=== PATIENT | female | born 1960 | race Caucasian/White ===

== ENCOUNTER → 2018-05-18 08:17 | Outpatient (CLI) | payer SELFPAY ==
--- NOTE | 2018-05-18 | DI.MG.S_ITS ---
BILATERAL DIGITAL SCREENING MAMMOGRAM 3D/2D WITH CAD: 05/18/2018 CLINICAL: Routine screening. Family history of breast cancer. Comparison is made to exams dated: 04/12/2017 mammogram, 02/28/2016 mammogram, and 02/27/2015 mammogram - [facility]. The tissue of both breasts is extremely dense, which lowers the sensitivity of mammography. Current study was also evaluated with a Computer Aided Detection (CAD) system. No significant masses, calcifications, or other findings are seen in either breast. There has been no significant interval change. IMPRESSION: NEGATIVE There is no mammographic evidence of malignancy. A 1 year screening mammogram is recommended. This exam was interpreted at Station ID: [id number]. NOTE: For mammograms, a report in lay terms will be sent to the patient. Approximately 15% of breast malignancies will not be visualized mammographically. In the management of a palpable breast mass, a negative mammogram must not discourage biopsy of a clinically suspicious lesion. Electronically Signed By: Noah bradford/rahel:05/18/2018 16:01:40 letter sent: Normal Exam ACR BI-RADS Category 1: Negative [id number]
== END ==
PROVIDERS: PCP Nurse Practitioner Family; Visit Provider Nurse Practitioner Family
DX: Z12.31 Encounter for screening mammogram for malignant neoplasm of breast (principal); Z80.3 Family history of malignant neoplasm of breast
CPT/HCPCS: 77063; 77067

== ENCOUNTER → 2019-05-22 13:58 | Outpatient (CLI) | payer SELFPAY ==
--- NOTE | 2019-05-22 | DI.MG.S_ITS ---
BILATERAL DIGITAL SCREENING MAMMOGRAM 3D/2D WITH CAD: 05/22/2019 CLINICAL: Routine screening. Family history of breast cancer. Comparison is made to exams dated: 05/18/2018 mammogram - [facility], 04/12/2017 mammogram, and 02/28/2016 mammogram - [facility]. The tissue of both breasts is extremely dense, which lowers the sensitivity of mammography. Current study was also evaluated with a Computer Aided Detection (CAD) system. No significant masses, calcifications, or other findings are seen in either breast. There has been no significant interval change. IMPRESSION: NEGATIVE There is no mammographic evidence of malignancy. A 1 year screening mammogram is recommended. This exam was interpreted at Station ID: [id number]. NOTE: For mammograms, a report in lay terms will be sent to the patient. Approximately 15% of breast malignancies will not be visualized mammographically. In the management of a palpable breast mass, a negative mammogram must not discourage biopsy of a clinically suspicious lesion. Electronically Signed By: Raymundo santana/rahel:05/22/2019 19:09:27 letter sent: Normal Exam ACR BI-RADS Category 1: Negative [id number]
== END ==
PROVIDERS: PCP Nurse Practitioner Family; Referring Provider Nurse Practitioner Family; Visit Provider Nurse Practitioner Family
DX: Z12.31 Encounter for screening mammogram for malignant neoplasm of breast (principal); Z80.3 Family history of malignant neoplasm of breast
CPT/HCPCS: 77063; 77067

== ENCOUNTER → 2019-10-31 14:47 | Outpatient (CLI) | payer SELFPAY ==
--- NOTE | 2019-10-31 14:49 | DI.RAD.S_ITS ---
PROCEDURE: XR KNEE LT 3V INDICATIONS: 3 week hx l knee pain TECHNIQUE: 3 views of the knee were acquired. COMPARISON: None. FINDINGS: Bones: No fractures or dislocations. No suspicious bony lesions. Mild early knee joint degeneration. Soft tissues: No joint effusion. No suspicious soft tissue calcifications. IMPRESSION: Mild periarticular osteophyte formation indicating early joint degeneration. Dictated by: Rojelio Jackson [facility] Interpreted: Abdoul Arce MD on 10/31/2019 at 16:01 Approved by: Abdoul Arce M.D. on 10/31/2019 at 16:38
== END ==
PROVIDERS: PCP Family Medicine; Referring Provider Family Medicine; Visit Provider Registered Nurse Diabetes Educator
DX: M25.562 Pain in left knee (principal); M17.12 Unilateral primary osteoarthritis, left knee
CPT/HCPCS: 73562

== ENCOUNTER 2020-03-17 15:08 | Emergency (ER) | payer SELFPAY ==
[2020-03-17] VITALS (9 sets, daily range): BP systolic 125–206; BP diastolic 75–141; PULSE 74–159; RESP 11–41; TEMP 37; O2SAT 90–99; BMI 24.3
--- NOTE | 2020-03-17 15:28 | DI.RAD.S_ITS ---
PROCEDURE: XR CHEST 1V INDICATIONS: chest pain TECHNIQUE: One view of the chest was acquired. COMPARISON: None. FINDINGS: Surgical changes and devices: Sternotomy wires and a cardiac valve prosthesis can be seen. Lungs and pleura: Lungs are clear. No pleural effusions or pneumothorax. Mediastinum: Mediastinal contours appear normal. Heart size is normal. Bones and chest wall: No suspicious bony lesions. Age-appropriate bony degenerative changes are seen. Overlying soft tissues appear unremarkable. IMPRESSION: Clear lungs. Postoperative and degenerative changes are seen. Dictated by: David Tipton M.D. on 03/17/2020 at 16:04 Approved by: David Tipton M.D. on 03/17/2020 at 16:05
[2020-03-17] MEDS: SODIUM CHLORIDE 0.9% 1,000 ML 150 ML IV (15:39)
[2020-03-17] MEDS: propofoL 200 MG/20 ML VIAL 100 MG IV (15:39)
[2020-03-17] MEDS: ENOXAPARIN 40 MG/0.4 ML SYRINGE SUBCUT (15:39)
[2020-03-17] MEDS: propofoL 200 MG/20 ML VIAL 30 MG IV (15:45)
[2020-03-17 15:53] LABS: Add Manual Diff / Slide Review NO; Basophils Absolute Auto 100 /uL (0-100); Basophils Percent Auto 0.5 % (0-2); Eosinophils Absolute Auto 100 /uL (0-450); Eosinophils Percent Auto 0.8 % (2-4); Hematocrit 48.8 % (36-46); Hemoglobin 16.1 g/dL (12.0-16.0); Lymphocytes Absolute Auto 1600 /uL (1100-4500); Lymphocytes Percent Auto 15.2 % (25-40); Mean Corpuscular Hemoglobin 31.7 PG (26-34); Mean Corpuscular Volume 95.9 fL (80-100); Monocytes Absolute Auto 800 /uL (0-900); Monocytes Percent Auto 7.6 % (3-14); Neutrophils Absolute Auto 7900 /uL (1500-7000); Neutrophils Percent Auto 75.9 % (50-75); Platelet Count 232 X10^3/uL (150-400); Red Blood Cell Count 5.09 X10^6/uL (4.0-5.2); Red Cell Distribution Width 13.3 % (11.6-14.8); White Blood Cell Count 10.4 X10^3/uL (4.5-11.0)
[2020-03-17 16:08] LABS: INR 0.9 (0.9-1.3); Prothrombin Time 10.3 SECONDS (10.1-12.7)
[2020-03-17 16:11] LABS: PTT Partial Thromboplastin Tim 31 SECONDS (26.4-36.2)
[2020-03-17 16:12] LABS: Alanine Aminotransferase 25 IU/L (<35); Albumin 4.7 g/dL (3.5-5.0); Albumin Globulin Ratio 1.5 (1.0-2.8); Alkaline Phosphatase 80 U/L (38-126); Aspartate Aminotransferase 31 IU/L (14-36); BUN Creatinine Ratio 18.2 (6-22); Bilirubin Total 0.5 mg/dL (0.2-1.3); Blood Urea Nitrogen 12 mg/dL (7-17); Calcium 9.7 mg/dL (8.4-10.2); Carbon Dioxide 23 mmol/L (22-32); Chloride 105 mmol/L (98-107); Creatine Kinase 58 U/L (30-135); Estimated Glomerular Filt Rate > 60.0 mL/min (>60); Globulin 3.2 g/dL (1.7-4.1); Glucose 127 mg/dL (70-100); HEMOLYSIS 19 (0-50); Lipase 102 U/L (23-300); Magnesium 2.2 mg/dL (1.6-2.3); Potassium 4.1 mmol/L (3.4-5.1); Sodium 135 mmol/L (137-145); Total Protein 7.9 g/dL (6.3-8.2)
--- NOTE | 2020-03-17 16:14 | ED_ITS ---
HPI - Arrhythmia/Palpitations General Chief Complaint: Arrhythmia/Palpitations Stated Complaint: heart arrhythmia Time Seen by Provider: 03/17/20 15:10 Source: patient Mode of arrival: Family Vehicle Limitations: no limitations History of Present Illness HPI narrative: 59F nonsmoker with a history of palpitations/possible AFib, prior Mitral Valve repair presents with rapid heart rate and palpitations since about 0500 today. She feels anxious, but denies chest pain. She has mild shortness of breath. She denies any medication change or dietary change. She states she's been seeing cardiology at [facility] and they have her scheduled for a Zio patch to evaluate what sounds like atrial fibrillation in a few weeks. She does not take anticoagulation. She denies dizziness, weakness, or fatigue. 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 1 cap PO .qhs 03/23/18 10/31/19 HRT TOPICAL 10/31/19 aspirin 81 mg tablet,delayed 81 mg PO DAILY 10/31/19 10/31/19 release dragon balm THC TOPICAL 10/31/19 Previous Rx's Medication Instructions Recorded progesterone micronized 100 mg 100 mg PO BEDTIME #90 cap 11/24/19 capsule felodipine 2.5 mg tablet,extended 2.5 mg PO DAILY #90 tab 12/01/19 release 24 hr apixaban [Eliquis] 5 mg PO BID 21 Days #42 tab 03/17/20 Allergies Allergy/AdvReac Type Severity Reaction Status Date / Time No Known Drug Allergies Allergy Verified 03/17/20 15:33 Review of Systems Constitutional Constitutional: Denies chills, Denies fatigue, Denies fever(s), Denies frequent falls, Denies lethargy and Denies weakness Eyes Eyes: Denies change in vision, Denies eye discharge, Denies irritation and Denies loss of vision ENT Ears, Nose, Mouth, and Throat: Denies change in voice, Denies dizziness, Denies neck pain, Denies sore throat and Denies throat swelling Cardiovascular Cardiovascular: Denies chest pain, Reports rapid heart rate, Reports irregular heart rhythm, Reports lightheadedness, Reports palpitations, Reports dyspnea, Denies dyspnea on exertion and Denies orthopnea Respiratory Respiratory: Denies cough, Reports dyspnea, Denies dyspnea on exertion and Denies wheezing Gastrointestinal Gastrointestinal: Denies abdominal pain, Denies change in bowel habits, Denies diarrhea, Denies nausea and Denies vomiting Musculoskeletal Musculoskeletal: Denies neck pain and Denies numbness Integumentary/Breasts Skin/Breast: Denies pruritus, Denies erythema, Denies rash and Denies wounds Neurologic Neurologic: Denies behavioral changes, Denies confusion, Denies dizziness, Denies frequent falls, Denies loss of vision, Denies numbness and Denies weakness Psychiatric Psychiatric: Denies anxiety, Denies behavioral changes, Denies confusion, Denies depression, Denies homicidal ideation and Denies suicidal ideation Endocrine Endocrine: Denies fatigue, Denies flushing and Reports palpitations Hematologic/Lymphatic Hematologic/Lymphatic: Denies easy bruising Allergic/Immunologic Allergic/Immunologic: Denies urticaria, Denies throat swelling and Denies wheezing Patient History Medical History (Updated 03/17/20 @ 17:09 by Gregory Patrick DO) Foot pain Hearing loss (~2016) Herpes (~1984) Infertility (~2002) Mitral valve prolapse (~1969) Osteoarthritis (~2014) Pulmonary hypertension (~1999) Rosacea (~2011) Tinnitus (~2016) Vision disorder Surgical History Anesthesia History of mitral valve repair (~06/27/97) Berry teeth extracted Family History Father Heart disease Grandfather Heart disease Social History marital status: lives independently: Yes education level: college 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 Well- nourished, well-developed patient, in mild distress. Anxious HEAD: Atraumatic. Normocephalic. EYES: Pupils equal round and reactive. Extraocular motions intact. No scleral icterus. No injection or drainage. ENT: Nose without bleeding, purulent drainage. Throat without erythema, tonsillar hypertrophy or exudate. Airway patent. NECK: Trachea midline. Non tender CARDIOVASCULAR: Tachycardic and irregular rhythm without murmurs, gallops, or rubs. RESPIRATORY: Clear to auscultation. Breath sounds equal bilaterally. No wheezes, rales, or rhonchi. GASTROINTESTINAL: Abdomen soft, non-tender, nondistended. EXTREMITIES: No edema or joint tenderness. BACK: Nontender without deformity or crepitance. No flank tenderness. NEURO: AOx3. SKIN: No rash or erythema of visible areas Initial Vital Signs Initial Vital Signs: Vital Signs Temperature 98.6 F 03/17/20 15:10 Pulse Rate 159 H 03/17/20 15:10 Respiratory Rate 28 H 03/17/20 15:10 Blood Pressure 206/118 H 03/17/20 15:10 Pulse Oximetry 98 03/17/20 15:10 Procedures Cardioversion Consent Signed: Yes Indication: rapid afib with ST depressions Stability: Unstable Number of attempts (shocks): 1 Joules used: 150 Cardiac rhythm post-cardioversion: NSR Procedural Sedation Consent signed: Yes Time out performed: Yes Indication: cardioversion ASA Class: II Mallampati Airway Classification: Class I Preparation: gambling monitor applied, pulse oximeter, capnometry used, supplemental O2 applied, suction/airway equipment at bedside and IV secured IV Propofol dose (mg): 130 Intraservice time/total sedation time (min): 10 ED Sedation Level: Moderate (Concious) Patient Tolerated Procedure: Well Complications: Respiratory Depression-Repositioning Required Interventions: Airway repositioned Course Orders Ordered: ED Orders 03/17/20 15:24 Complete Blood Count AUTO DIFF Stat Comprehensive Metabolic Panel Stat Lipase Stat Magnesium Stat Partial Thromboplastin Time Stat Prothrombin Time INR Stat Thyroid Stimulating Hormone Stat Troponin & CK Cardiac Panel Stat 03/17/20 15:25 EKG-12 Lead Stat 03/17/20 15:28 XR chest 1V Stat 03/17/20 15:35 COVID19 Stat Discontinued Medications Enoxaparin Sodium (Enoxaparin 40 Mg/0.4 Ml Syringe) 40 mg SUBCUT NOW ONE Stop: 03/17/20 15:32 Last Admin: 03/17/20 15:39 Dose: 40 mg Documented by: PRITESH Sodium Chloride (Normal Saline 0.9%) 1,000 mls @ 150 mls/hr IV CONT SYED Last Infusion: 03/17/20 17:26 Dose: 0 mls/hr Documented by: Admin: 03/17/20 15:39 Dose: 150 mls/hr Documented by: PRITESH Propofol (Propofol 200 Mg/20 Ml Vial) 100 mg IV NOW ONE Stop: 03/17/20 15:32 Last Admin: 03/17/20 15:39 Dose: 100 mg Documented by: PRITESH Propofol (Propofol 200 Mg/20 Ml Vial) 30 mg IV NOW ONE Stop: 03/17/20 16:14 Last Admin: 03/17/20 15:45 Dose: 30 mg Documented by: PRITESH Consultations Consultation #1: discussed with Dr. Marie regarding selection of an ticoagulation in post electrocardioversion phase. DOACs appropriate given her lack of mechanical/bovine valve Vital Signs Vital signs: Vital Signs - 8 hr 03/17/20 15:10 03/17/20 15:40 03/17/20 15:42 Temperature 98.6 F Pulse Rate 159 H 150 H 142 H Respiratory Rate 28 H 17 11 L Blood Pressure 206/118 H Blood Pressure [Left Arm] 155/110 H 155/141 H Pulse Oximetry 98 99 96 03/17/20 15:48 03/17/20 15:50 03/17/20 15:52 Temperature Pulse Rate 80 79 74 Respiratory Rate 41 H 24 20 Blood Pressure Blood Pressure [Left Arm] 125/77 125/77 125/79 Pulse Oximetry 90 L 98 97 03/17/20 16:06 03/17/20 16:17 03/17/20 17:21 Temperature Pulse Rate 76 79 77 Respiratory Rate 16 24 24 Blood Pressure 144/82 H Blood Pressure [Left Arm] 145/75 H 144/83 H Pulse Oximetry 97 98 98 MDM - Arrhythmia/Palpitations Lab Data Result diagrams: 03/17/20 15:24 03/17/20 15:24 Labs: Lab Results 03/17/20 03/17/20 03/17/20 Range/Units 15:24 15:24 15:24 WBC 10.4 (4.5-11.0) X10^3/uL RBC 5.09 (4.0-5.2) X10^6/uL Hgb 16.1 H (12.0-16.0) g/dL Hct 48.8 H (36-46) % MCV 95.9 (80-100) fL MCH 31.7 (26-34) PG MCHC 33.0 (30-36) % RDW 13.3 (11.6-14.8) % Plt Count 232 (150-400) X10^3/uL Neut % (Auto) 75.9 H (50-75) % Lymph % (Auto) 15.2 L (25-40) % Marion % (Auto) 7.6 (3-14) % Eos % (Auto) 0.8 L (2-4) % Baso % (Auto) 0.5 (0-2) % Neut # (Auto) 7900 H (6020-6621) /uL Lymph # (Auto) 1600 (2919-8577) /uL Marion # (Auto) 800 (0-900) /uL Eos # (Auto) 100 (0-450) /uL Baso # (Auto) 100 (0-100) /uL PT 10.3 (10.1-12.7) SECONDS INR 0.9 (0.9-1.3) APTT 31 (26.4-36.2) SECONDS Sodium 135 L (137-145) mmol/L Potassium 4.1 (3.4-5.1) mmol/L Chloride 105 (98-107) mmol/L Carbon Dioxide 23 (22-32) mmol/L BUN 12 (7-17) mg/dL Creatinine 0.66 (0.52-1.04) mg/dL Estimated GFR > 60.0 (>60) mL/min BUN/Creatinine Ratio 18.2 (6-22) Glucose 127 H (70-100) mg/dL Calcium 9.7 (8.4-10.2) mg/dL Magnesium 2.2 (1.6-2.3) mg/dL Total Bilirubin 0.5 (0.2-1.3) mg/dL AST 31 (14-36) IU/L ALT 25 (<35) IU/L Alkaline Phosphatase 80 (38-126) U/L Total Creatine Kinase 58 (30-135) U/L CK-MB (CK-2) TNP CK-MB (CK-2) Rel Index TNP Troponin I < 0.012 (0.01-0.034) ng/mL Total Protein 7.9 (6.3-8.2) g/dL Albumin 4.7 (3.5-5.0) g/dL Globulin 3.2 (1.7-4.1) g/dL Albumin/Globulin Ratio 1.5 (1.0-2.8) Lipase 102 (23-300) U/L TSH (0.47-4.68) uIU/mL SARS-CoV-2 (PCR) (Negative) 03/17/20 03/17/20 Range/Units 15:24 15:35 WBC (4.5-11.0) X10^3/uL RBC (4.0-5.2) X10^6/uL Hgb (12.0-16.0) g/dL Hct (36-46) % MCV (80-100) fL MCH (26-34) PG MCHC (30-36) % RDW (11.6-14.8) % Plt Count (150-400) X10^3/uL Neut % (Auto) (50-75) % Lymph % (Auto) (25-40) % Marion % (Auto) (3-14) % Eos % (Auto) (2-4) % Baso % (Auto) (0-2) % Neut # (Auto) (2059-5491) /uL Lymph # (Auto) (9160-7872) /uL Marion # (Auto) (0-900) /uL Eos # (Auto) (0-450) /uL Baso # (Auto) (0-100) /uL PT (10.1-12.7) SECONDS INR (0.9-1.3) APTT (26.4-36.2) SECONDS Sodium (137-145) mmol/L Potassium (3.4-5.1) mmol/L Chloride (98-107) mmol/L Carbon Dioxide (22-32) mmol/L BUN (7-17) mg/dL Creatinine (0.52-1.04) mg/dL Estimated GFR (>60) mL/min BUN/Creatinine Ratio (6-22) Glucose (70-100) mg/dL Calcium (8.4-10.2) mg/dL Magnesium (1.6-2.3) mg/dL Total Bilirubin (0.2-1.3) mg/dL AST (14-36) IU/L ALT (<35) IU/L Alkaline Phosphatase (38-126) U/L Total Creatine Kinase (30-135) U/L CK-MB (CK-2) CK-MB (CK-2) Rel Index Troponin I (0.01-0.034) ng/mL Total Protein (6.3-8.2) g/dL Albumin (3.5-5.0) g/dL Globulin (1.7-4.1) g/dL Albumin/Globulin Ratio (1.0-2.8) Lipase (23-300) U/L TSH 0.938 (0.47-4.68) uIU/mL SARS-CoV-2 (PCR) Negative (Negative) ECG Data Attestation: I personally reviewed and interpreted this ECG as follows: Interpretation: Rapid atrial fibrillation, rate 134, ST depressions in septal and lateral leads Discharge Plan Departure Patient Disposition: Home Clinical Impression: Atrial fibrillation Qualifiers: Atrial fibrillation type: paroxysmal Qualified Code(s): I48.0 - Paroxysmal atrial fibrillation Instructions: DI for Atrial Fibrillation Activity Restrictions/Additional Instructions: *You have been diagnosed with [rapid atrial fibrillation, new onset, with associated EKG depressions. Your given propofol, followed by electrical cardioversion. Your labs are very reassuring. ] *What to do: *Take medications as directed *Follow up with your Chief Airline Radio Operator. Please call the office tomorrow morning and let them know you were seen here and we'd like you seen in follow up. I will electronically transmit your record from today's visit to Dr. Judd. 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
[2020-03-17 16:24] LABS: Troponin I < 0.012 ng/mL (0.01-0.034)
[2020-03-17 16:37] LABS: COVID19 -Nasal RAPID Negative (Negative)
[2020-03-17 17:00] LABS: Thyroid Stimulating Hormone 0.938 uIU/mL (0.47-4.68)
== END 2020-03-17 17:22 | disposition home or self-care (01) ==
PROVIDERS: Emergency Provider Emergency Medicine; PCP Family Medicine
DX: I48.0 Paroxysmal atrial fibrillation (principal); R06.02 Shortness of breath; R42 Dizziness and giddiness; Z20.822 Contact with and (suspected) exposure to COVID-19
CPT/HCPCS: 36415; 71045; 80053; 82550; 83690; 83735; 84443; 84484; 85025; 85610; 85730; 87635; 92960; 93005; 94770; 96360; 96361; 96372; 99152; 99284; 99285; 99291; J1650; J2704

== ENCOUNTER → 2020-11-25 09:45 | Outpatient (CLI) | payer OTHER, SELFPAY ==
[2020-11-25 10:12] LABS: COVID19 -Nasal RAPID Negative (Negative)
== END ==
PROVIDERS: PCP Family Medicine; Visit Provider Family Medicine
DX: Z20.822 Contact with and (suspected) exposure to COVID-19 (principal)
CPT/HCPCS: 87635

== ENCOUNTER 2021-05-24 15:08 | Emergency (ER) | payer SELFPAY ==
[2021-05-24] VITALS (39 sets, daily range): BP systolic 118–182; BP diastolic 67–101; PULSE 44–109; RESP 8–36; TEMP 36.7; O2SAT 95–100; BMI 25.4
--- NOTE | 2021-05-24 15:11 | DI.RAD.S_ITS ---
PROCEDURE: XR CHEST 1V INDICATIONS: chest pain TECHNIQUE: One view of the chest was acquired. COMPARISON: [facility], CR, XR CHEST 1V, 03/17/2020, 15:36. FINDINGS: Surgical changes and devices: Median sternotomy wires and prosthetic heart valve are again seen unchanged from prior study. Lungs and pleura: Lungs are clear. No pleural effusions or pneumothorax. Mediastinum: Mediastinal contours appear normal. Heart size is normal. Bones and chest wall: No suspicious bony lesions. Overlying soft tissues appear unremarkable. IMPRESSION: No acute cardiopulmonary pathology. Dictated by: Estuardo Cramer M.D. on 05/24/2021 at 15:49 Approved by: Estuardo Cramer M.D. on 05/24/2021 at 15:49
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
[2021-05-24 15:59] LABS: Add Manual Diff / Slide Review NO; Basophils Absolute Auto 100 /uL (0-100); Basophils Percent Auto 0.8 % (0-2); Eosinophils Absolute Auto 200 /uL (0-450); Eosinophils Percent Auto 3.1 % (2-4); Hematocrit 45.3 % (36-46); Hemoglobin 15.2 g/dL (12.0-16.0); Lymphocytes Absolute Auto 2000 /uL (1100-4500); Lymphocytes Percent Auto 26.7 % (25-40); Mean Corpuscular HGB Conc 33.7 % (30-36); Mean Corpuscular Volume 95.2 fL (80-100); Monocytes Absolute Auto 600 /uL (0-900); Monocytes Percent Auto 7.2 % (3-14); Neutrophils Absolute Auto 4800 /uL (1500-7000); Neutrophils Percent Auto 62.2 % (50-75); Platelet Count 199 X10^3/uL (150-400); Red Blood Cell Count 4.76 X10^6/uL (4.0-5.2); Red Cell Distribution Width 12.9 % (11.6-14.8); White Blood Cell Count 7.6 X10^3/uL (4.5-11.0)
[2021-05-24 16:03] LABS: Alanine Aminotransferase 22 IU/L (<35); Albumin 4.5 g/dL (3.5-5.0); Albumin Globulin Ratio 1.5 (1.0-2.8); Alkaline Phosphatase 55 U/L (38-126); Aspartate Aminotransferase 29 IU/L (14-36); BUN Creatinine Ratio 15.4 (6-22); Bilirubin Total 0.6 mg/dL (0.2-1.3); Blood Urea Nitrogen 14 mg/dL (7-17); Calcium 9.1 mg/dL (8.4-10.2); Carbon Dioxide 25 mmol/L (22-32); Chloride 104 mmol/L (98-107); Creatine Kinase 75 U/L (30-135); Estimated Glomerular Filt Rate > 60.0 mL/min (>60); Glucose 153 mg/dL (80-110); HEMOLYSIS < 15 (0-50); Lipase 98 U/L (23-300); Magnesium 2.1 mg/dL (1.6-2.3); Potassium 3.9 mmol/L (3.4-5.1); Sodium 135 mmol/L (137-145); Total Protein 7.5 g/dL (6.3-8.2)
[2021-05-24] MEDS: METOPROLOL IR 25 MG TABLET 50 MG PO (16:03)
[2021-05-24 16:13] LABS: Troponin I 0.032 ng/mL (0.01-0.034)
[2021-05-24] MEDS: dilTIAZem 5 MG/ML SDV 10 MG IV (17:11)
[2021-05-24 17:18] LABS: INR 1.1 (0.9-1.3)
[2021-05-24 17:20] LABS: PTT Partial Thromboplastin Tim 35 SECONDS (26.4-36.2)
[2021-05-24 19:33] LABS: COVID19 -Nasal RAPID Negative (Negative)
[2021-05-24] MEDS: propofoL 200 MG/20 ML VIAL 155 MG IV (20:22)
== END 2021-05-24 21:52 | disposition home or self-care (01) ==
PROVIDERS: Emergency Provider Emergency Medicine; PCP Family Medicine
DX: I48.92 Unspecified atrial flutter (principal); Z87.891 Personal history of nicotine dependence; Z20.822 Contact with and (suspected) exposure to COVID-19
CPT/HCPCS: 36415; 71045; 80053; 82550; 83690; 83735; 84484; 85025; 85610; 85730; 87635; 92960; 93005; 93010; 96374; 99152; 99285; 99291; C9803; J2704

== ENCOUNTER → 2021-07-21 11:12 | Outpatient (CLI) | payer OTHER, SELFPAY ==
[2021-07-21 13:01] LABS: Lactate Dehydrogenase 355 U/L (313-618)
[2021-07-21 13:30] LABS: Cancer Antigen 125 5.8 U/mL (0-35); Carcinoembryonic Antigen 1.5 ng/mL (0.1-3.0)
[2021-07-22 07:36] LABS: Alpha Fetoprotein 4.3 ng/mL (0.0-9.2)
[2021-07-24 12:09] LABS: Inhibin B <7.0 pg/mL (0.0-16.9)
== END ==
PROVIDERS: PCP Family Medicine; Referring Provider Obstetrics & Gynecology; Visit Provider Obstetrics & Gynecology
DX: N83.291 Other ovarian cyst, right side (principal); R10.2 Pelvic and perineal pain; R19.09 Other intra-abdominal and pelvic swelling, mass and lump
CPT/HCPCS: 36415; 82105; 82378; 83520; 83615; 86304

== ENCOUNTER → 2021-09-24 16:23 | Outpatient (CLI) | payer OTHER, SELFPAY ==
[2021-09-24 18:31] LABS: COVID19 -Nasal RAPID Negative (Negative)
== END ==
PROVIDERS: PCP Family Medicine; Visit Provider Obstetrics & Gynecology
DX: Z20.822 Contact with and (suspected) exposure to COVID-19 (principal); Z01.812 Encounter for preprocedural laboratory examination
CPT/HCPCS: 87635

== ENCOUNTER 2021-09-25 12:09 | Day surgery (SDC) | payer OTHER, SELFPAY ==
[2021-09-23 13:21] VITALS: BMI 24.8
[2021-09-25] VITALS (7 sets, daily range): BP systolic 131–157; BP diastolic 69–87; PULSE 55–61; RESP 14–20; TEMP 36.6–36.8; O2SAT 95–98; BMI 24.8
--- NOTE | 2021-09-25 | PATH_ITS ---
[facility] Accession Number: [id number] . 01 Material submitted: . ovary - BILATERAL OVARIES AND FALLOPIAN TUBES . 01 Diagnosis: Ovaries and Fallopian Tubes, Bilateral Salpingo-oophorectomy: Ovaries with atrophy, corpora albicantia, and cystic follicles. Fallopian tubes without significant pathologic abnormality. V 09/30/2021 1112 Local . 01 Electronically signed: . Matilda Goff MD, Pathologist NPI- [id number] . 01 Gross description: . Received in formalin in a specimen container, labeled with the patient's name and medical record number, bilateral ovaries and bilateral fallopian tubes, are bilateral unoriented fallopian tubes with attached ovaries and fimbriae. Ovary #1 measures 3.0 x 1.3 x 0.7 cm. It is cordero-pink with a cerebriform appearance. The attached fallopian tube measures 6.0 cm in length and 0.5 cm in diameter. The fimbriae measure 1.5 x 1.3 x 0.5 cm. The fallopian tube serosal surface is pink, smooth, glistening and grossly unremarkable. The ovarian cut surfaces are solid with multiple corpora albicantia. No distinct lesions are grossly identified. The fallopian tube cut surfaces are patent with a 0.2 cm patent lumen. Ovary #2 measures 2.3 x 1.2 x 0.7 cm, and the attached fallopian tube measures 6.7 cm in length and 0.5 cm in diameter. The attached fimbriae measure 1.5 x 1.0 x 0.8 cm. Ovary #2 outer surface is cordero to slightly pink with cerebriform appearance. Fallopian tube serosal surface is pink, smooth, glistening. Ovary #2 is serially sectioned to reveal two oval-shaped cysts filled with translucent serous content that measures 0.3 cm and 0.7 cm in diameter. The inner surfaces of both cysts are grossly unremarkable. The remainder of the cut surfaces of ovary #2 are grossly consistent with unremarkable ovarian parenchyma with multiple corpora albicantia. The cut surfaces of the fallopian tube are patent, cylindrical with 0.2 cm patent lumen. The provider service representative sections are submitted in cassettes A1-A4 as follows: A1: Ovary #1 provider service representative. A2: Fallopian tube #1 and fimbriae #1. A3: Ovary #2 with cyst and grossly unremarkable parenchyma. A4: Ovary #2 fallopian tube and fimbriae #2. ([id number]) /FRR 09/27/2021 1103 Local . 01 Pathologist provided ICD-10: N95.0 . 01 CPT . 824211 Specimen Comment: A courtesy copy of this report has been sent to [phone] Performed at: 01 [facility] [address] [place] [address] [address], [place], [place] [id number] MD Noah Grace MD Phone: [phone]
[2021-09-25] MEDS: LACTATED RINGERS 1,000 ML 100 ML IV (13:08)
[2021-09-25 13:12] LABS: Add Manual Diff / Slide Review NO; Basophils Absolute Auto 100 /uL (0-100); Basophils Percent Auto 1.2 % (0-2); Eosinophils Absolute Auto 400 /uL (0-450); Eosinophils Percent Auto 5.5 % (2-4); Hematocrit 40.3 % (36-46); Hemoglobin 13.7 g/dL (12.0-16.0); Lymphocytes Absolute Auto 2300 /uL (1100-4500); Lymphocytes Percent Auto 35.3 % (25-40); Mean Corpuscular HGB Conc 33.9 % (30-36); Mean Corpuscular Hemoglobin 32.2 PG (26-34); Monocytes Absolute Auto 600 /uL (0-900); Neutrophils Absolute Auto 3200 /uL (1500-7000); Platelet Count 175 X10^3/uL (150-400); Red Blood Cell Count 4.25 X10^6/uL (4.0-5.2); Red Cell Distribution Width 13.5 % (11.6-14.8); White Blood Cell Count 6.4 X10^3/uL (4.5-11.0)
--- NOTE | 2021-09-25 13:24 | PM.PREOP ---
Pre-operative Note COVID-19 COVID-19 status: Negative Result date/Date tested (Pos, Neg/Pending): 09/25/21 Criteria for continued procedure: Non-surgical alternatives not available or appropriate per current SOC Interval Note History & Physical reviewed/Exam performed by Physician: Yes Changes to H&P: No
[2021-09-25] MEDS: BUPIVACAINE 0.5% (PF) 30 ML, EPINEPHrine 0.15 MG INJ (14:00)
--- NOTE | 2021-09-25 14:04 | SUR.OPER ---
Lithotomy on padded OR bed, head on pillow, arms secured on padded arm boards at <90 degrees abduction. Legs secured in padded yellow fins stirrups. POSITION APPROVED BY SURGEON AND ANESTHESIA
--- NOTE | 2021-09-25 14:43 | PM.GYNOP.1 ---
Operative Date/Time/Diagnoses Date of procedure: 09/25/21 Time of procedure: 13:45 Pre-op diagnosis: Right ovarian cyst Post-op diagnosis: same Procedure & Clinicians Procedure: Procedures Operation Date: 09/25/21 13:30 Actual Procedure Side Surgeon p Laparoscopic Salpingo-oophorectomy Bilateral Claude Melchor MD Indications: Ame is a 61-year-old postmenopausal woman who presented initially for evaluation of a right ovarian cyst found on pelvic ultrasound performed due to vague pelvic discomfort/cramping.? The ultrasound performed on 06/24/2021 showed that the right ovary measures 4.1 x 4.7 x 4.5 cm and there is a 3.5 x 3.4 x 3.2 cm hypoechoic complex cyst which has smooth margins and a moderate posterior acoustic enhancement.? Left ovary measures 2.0 x 3.0 x 1.7 cm.? There is no free fluid in the posterior cul-de-sac.? The uterus itself is normal in size the endometrium the measuring 3.6 mm in combined thickness.? She does have 2 uterine fibroids with 1 located in the mid fundal anterior region and a 2nd in the mid anterior region.? Patient denies postmenopausal bleeding.? She is however taking compound did postmenopausal HRT and brings saliva hormone levels for review.? Those levels show that she has a normal estradiol level but her salivary progesterone level is low.? She would like to consider bioidentical hormone therapy that is not compound in therefore will be covered in most cases by her insurance coverage.? Tumor markers obtained 07/21/2021 including CA 125, LDH, CEA, AFP, inhibin B are all within normal range.? After discussing all options including expectant management with serial ultrasound follow-ups, the patient has decided to proceed with laparoscopic bilateral salpingo-oophorectomy which is scheduled for the [facility] on 09/25/2021 Patient's medical history is notable for prior open-heart surgery approximately 25 years ago due to mitral valve disease and more recently, she has had atrial fibrillation which responded to medical therapy and subsequently developed atrial flutter which has also responded to medical therapy.? Patient is on long-term anticoagulant therapy with Eliquis and took her last dose prior to her scheduled laparoscopic BSO on 09/25/2021.? She presents today for her scheduled surgery. Surgeon: Claude Melchor Respiratory Technician: Anne Garcia Anesthesia Type: General Operative Notes Findings: Multiply myomatous uterus with the overall uterine size upper limits of normal. Anterior and posterior cul-de-sac are unremarkable. Both fallopian tubes and ovaries are normal right ovarian cyst noted previously not seen at the time of surgery. The appendix could not be visualized and is suspected to be retrocecal in location. The upper abdomen is normal to laparoscopic visualization. Closure Type: primary Specimen(s): left tube & ovary and right tube & ovary Estimated blood loss (mL): 5 Blood products transfused: none Procedure in detail: With the patient under satisfactory general endotracheal anesthesia in the modified dorsal lithotomy position, perineum, vagina, and abdomen were prepped and draped in usual manner for laparoscopy. A pre-surgical safety time-out was then taken in accordance with [facility] Main OR protocols. The umbilicus was infiltrated with 0.5% Marcaine with epinephrine and a 1 cm vertical incision was then made in the skin of the inferior aspect of umbilicus. A Veress needle was then used to insufflate the abdomen with carbon dioxide and following insufflation an 11 mm trocar and sleeve were placed through the umbilical incision. Correct location of the sleeve inside the abdominal cavity was confirmed with the scope and 2nd and 3rd 5 mm ports were placed after infiltration with 0.5% Marcaine with epi and the right and left mid quadrants. Using a 3 puncture technique the pelvis and abdomen were visualized with the findings as noted previously and images were obtained. The distal tube was then grasped and elevated. The infundibulopelvic ligament on left was then coagulated and divided with the Power Seal device and dissection was carried out across mesosalpinx to the level of the cornua where the fallopian tube and the utero-ovarian were coagulated and divided with the Power Seal device. the specimen was then placed in the anterior cul-de-sac for subsequent retrieval. Attention was then turned to the right adnexa with the distal tube elevated with a grasping forcep and the infundibulopelvic ligament coagulated and divided with Power Seal device. The dissection was carried medially across the mesosalpinx to the level of cornea which time utero-ovarian ligament and the fallopian tube were coagulated and divided with the Power Seal device. Hemostasis was excellent and there was no bleeding encountered in the pelvis or with any the port incisions. Once complete hemostasis in the pelvis and abdomen were assured, the laparoscopic sleeves were removed after venting of the pneumoperitoneum and a 0 Vicryl interrupted was placed on the fascia of the umbilical incision. Skin edges of each incisionwere then brought together with 4-0 Monocryl suture using inverted interrupted stitches. Skin glue was then applied followed by the application of appropriate dressings. Patient was then awakened from anesthesia and transferred to the PACU for a period of observation and recovery after having tolerated the procedure well. Complications: none Post-operative Condition: stable Disposition: PACU Plan for aftercare: Routine postoperative care. Follow-up appointment will be in 2 weeks. Patient to resume anticoagulant therapy this evening or tomorrow morning.
== END 2021-09-25 16:06 | disposition home or self-care (01) ==
PROVIDERS: PCP Family Medicine; Referring Provider Obstetrics & Gynecology; Visit Provider Obstetrics & Gynecology
PROC: 0UT74ZZ Resection of Bilateral Fallopian Tubes, Percutaneous Endoscopic Approach (ICD-10-PCS; CPT 58661; principal; 2021-09-25 13:30)
DX: N83.291 Other ovarian cyst, right side (principal); Z79.01 Long term (current) use of anticoagulants; Z87.891 Personal history of nicotine dependence; D25.9 Leiomyoma of uterus, unspecified; I48.91 Unspecified atrial fibrillation
CPT/HCPCS: 58661; 36415; 82962; 85025; J0171; J1100; J1885; J2250; J2405; J2704; J3010

== ENCOUNTER → 2021-10-03 11:28 | Outpatient (CLI) | payer OTHER, SELFPAY ==
[2021-10-03 12:28] LABS: Strep Grp A by PCR Rapid Negative (Negative)
== END ==
PROVIDERS: PCP Pediatrics; Visit Provider Pediatrics
DX: J02.9 Acute pharyngitis, unspecified (principal)
CPT/HCPCS: 87070; 87651

== ENCOUNTER → 2021-12-15 15:19 | Outpatient (CLI) | payer OTHER, SELFPAY ==
--- NOTE | 2021-12-15 15:21 | DI.MG.S_ITS ---
BILATERAL DIGITAL SCREENING MAMMOGRAM 3D/2D WITH CAD: 12/15/2021 CLINICAL: Routine screening. Family history of breast cancer. Comparison is made to exams dated: 09/25/2020 mammogram - [facility], 05/22/2019 mammogram, 05/18/2018 mammogram - [facility], and 02/28/2016 mammogram - [facility]. Both breasts are extremely dense, which lowers the sensitivity of mammography (category d />75% glandular tissue). Current study was also evaluated with a Computer Aided Detection (CAD) system. No significant masses, calcifications, or other findings are seen in either breast. There has been no significant interval change. IMPRESSION: NEGATIVE There is no mammographic evidence of malignancy. A 1 year screening mammogram is recommended. Based on Tyrer-Cuzick model (a risk assessment model), the patient's lifetime risk is 26.1% and her 10 year risk is 11.6%. If a patient has an elevated risk, a more comprehensive evaluation should be considered and/or a referral to a genetic counselor. The [place] [employer], [employer], and NCCN Guidelines advise the consideration of Breast MRI as an adjunct to screening mammography in patients whose Lifetime risk to develop breast cancer is 20% or higher. This exam was interpreted at Station ID: [id number]. NOTE: For mammograms, a report in lay terms will be sent to the patient. Approximately 15% of breast malignancies will not be visualized mammographically. In the management of a palpable breast mass, a negative mammogram must not discourage biopsy of a clinically suspicious lesion. Electronically Signed By: Rakesh washburn/rahel:12/15/2021 16:30:29 letter sent: Normal Exam ACR BI-RADS Category 1: Negative 3341F
== END ==
PROVIDERS: PCP Registered Nurse Diabetes Educator; Referring Provider Family Medicine; Visit Provider Family Medicine
DX: Z12.31 Encounter for screening mammogram for malignant neoplasm of breast (principal); Z80.3 Family history of malignant neoplasm of breast
CPT/HCPCS: 77063; 77067

== ENCOUNTER → 2022-05-25 17:53 | Outpatient (ROUT) | payer OTHER, SELFPAY ==
[2022-05-28 15:09] LABS: Fecal Immunochemical Test Negative (Negative)
== END ==
PROVIDERS: PCP Family Medicine; Visit Provider Family Medicine
DX: Z12.11 Encounter for screening for malignant neoplasm of colon (principal)
CPT/HCPCS: 82274

== ENCOUNTER → 2022-09-04 12:36 | Outpatient (CLI) | payer OTHER, SELFPAY ==
[2022-09-04 13:54] LABS: C-Reactive Protein Quant < 0.5 mg/dL (<1.0)
== END ==
PROVIDERS: PCP Family Medicine; Referring Provider Internal Medicine Sleep Medicine; Visit Provider Internal Medicine Sleep Medicine
DX: G25.81 Restless legs syndrome (principal); E83.10 Disorder of iron metabolism, unspecified
CPT/HCPCS: 36415; 86140

== ENCOUNTER → 2022-09-09 11:07 | Outpatient (CLI) | payer OTHER, SELFPAY ==
[2022-09-09 13:26] LABS: HEMOLYSIS < 15 (0-50); Iron 143 ug/dL (37-170)
[2022-09-09 13:39] LABS: Percent Iron Saturation 49 % (15-50); Total Iron Binding Capacity 289 ug/dL (265-497); Transferrin 211 mg/dL (206-381)
[2022-09-09 13:57] LABS: Ferritin 81 ng/mL (11-264)
== END ==
PROVIDERS: PCP Family Medicine; Referring Provider Internal Medicine Sleep Medicine; Visit Provider Internal Medicine Sleep Medicine
DX: G25.81 Restless legs syndrome (principal); E83.10 Disorder of iron metabolism, unspecified
CPT/HCPCS: 36415; 82728; 83540; 83550

== ENCOUNTER 2022-11-04 20:25 | Emergency (ER) | payer OTHER, SELFPAY ==
[2022-11-04] VITALS (18 sets, daily range): BP systolic 106–179; BP diastolic 60–105; PULSE 50–114; RESP 12–34; TEMP 36.3–36.9; O2SAT 95–98; BMI 25.4
--- NOTE | 2022-11-04 20:57 | ED.ARRPALP ---
HPI - Arrhythmia/Palpitations General Chief Complaint: Arrhythmia/Palpitations Stated Complaint: in AFIB for & hours Time Seen by Provider: 11/04/22 20:48 Source: patient Mode of arrival: Ambulatory History of Present Illness HPI narrative: Patient is a 62-year-old female. She has a history of paroxysmal atrial fibrillation. She is on Eliquis. She is been taking Eliquis twice a day for years. She was also on sotalol. She states that several hours ago she started to feel like her heart was beating fast. She said normally her heart rate is in the 50s but at home it was in the 90s to low 100s. She is not having any chest pain or shortness of breath. Just a very small amount of lightheadedness. She has been taking all her medications as directed. She comes in the emergency department for evaluation of what feels like atrial fibrillation and for a cardioversion. Related Data Home Medications Medication Instructions Recorded Confirmed draglouisa velasquezm THC 1 unit topical DAILY PRN Pain 10/31/19 05/18/22 (Scale Score 1-3) apixaban 5 mg tablet 5 mg PO BID 05/29/20 05/18/22 sotalol 80 mg tablet 80 mg PO BID 09/25/21 05/18/22 loratadine 10 mg tablet (Allergy 10 mg PO DAILY 12/16/21 05/18/22 Relief (loratadine)) Previous Rx's Medication Instructions Recorded estradiol 0.0375 mg/24 hr 1 patch transdermal 2XW #8 ea 05/18/22 semiweekly transdermal patch (Vivelle-Dot) fluticasone propionate 50 2 spray intranasal DAILY #16 grams 05/18/22 mcg/actuation nasal spray,suspension (Flonase Allergy Relief) alprazolam 0.25 mg tablet 0.25 mg PO Q8H PRN anxiety #15 tabs 06/08/22 albuterol sulfate 90 mcg/actuation 2 puff inhalation Q4-6H PRN 06/09/22 aerosol inhaler shortness of breath or wheezing #8.5 grams acyclovir 400 mg tablet 400 mg PO DAILY PRN cold sores #90 07/03/22 tabs progesterone micronized 200 mg See Rx Instructions .Route 07/10/22 capsule .COMPLEX #30 caps fluticasone propionate 110 2 puff inhalation BID #12 grams 08/19/22 mcg/actuation HFA aerosol inhaler (Flovent HFA) zolpidem 6.25 mg tablet,extended 6.25 mg PO BEDTIME #30 tabs 08/21/22 release,multiphase (Ambien CR) zolpidem 5 mg tablet 5 mg PO BEDTIME PRN insomnia #30 09/04/22 tabs Allergies Allergy/AdvReac Type Severity Reaction Status Date / Time No Known Drug Allergies Allergy Verified 05/18/22 14:10 Review of Systems Constitutional Constitutional: Reports system reviewed and no additional complaints, except as documented Cardiovascular Cardiovascular: Reports system reviewed and no additional complaints, except as documented Respiratory Respiratory: Reports system reviewed and no additional complaints, except as documented Gastrointestinal Gastrointestinal: Reports system reviewed and no additional complaints, except as documented Musculoskeletal Musculoskeletal: Reports system reviewed and no additional complaints, except as documented Integumentary/Breasts Skin/Breast: Reports system reviewed and no additional complaints, except as documented Neurologic Neurologic: Reports system reviewed and no additional complaints, except as documented Hematologic/Lymphatic On Anticoagulants: Yes Patient History Medical History Atrial fibrillation (~03/17/20) Congenital hearing loss of both ears Foot pain Hearing loss (~2016) Herpes (~1984) Infertility (~2002) Insomnia rib stiffener and heel dipper current use of anticoagulant therapy Mild persistent asthma Mitral valve prolapse (~1969) Osteoarthritis (~2014) Pharyngitis Pulmonary hypertension (~1999) Rosacea (~2011) Tinnitus (~2016) Vision disorder Surgical History Anesthesia History of mitral valve repair (~06/27/97) [place] teeth extracted Family History Father Heart disease Grandfather Heart disease Social History marital status: household members: friend(s) lives independently: Yes education level: college occupational status: employed Smoking Status: Former smoker alcohol intake: current substance use type: does not use Smoking Status: Former smoker alcohol intake frequency: 0-2 drinks per day Substance Use Type: marijuana Exam Initial Vital Signs Initial Vital Signs: Vital Signs Temperature 98.5 F 11/04/22 20:35 Pulse Rate 114 H 08/23/23 20:35 Respiratory Rate 18 11/04/22 20:35 Blood Pressure 179/99 H 11/04/22 20:35 Pulse Oximetry 98 11/04/22 20:35 Oxygen Delivery Method Room Air 11/04/22 20:35 Const General: cooperative, comfortable and No ill appearing HENMT Head: normal to inspection and normocephalic Resp Effort & Inspection: normal respiratory effort Auscultation: clear to auscultation bilaterally Cardio Rate: regular rate Rhythm: abnormal rhythm GI Inspection: normal to inspection Skin General: no rashes or lesions noted Neuro General: patient alert, patient awake, patient oriented x3 and moves all extremities Procedures Cardioversion Consent Signed: Yes Indication: AFib Stability: Stable Number of attempts (shocks): 1 Joules used: 120 Cardiac rhythm post-cardioversion: Sinus rhythm Procedural Sedation Consent signed: Yes Time out performed: Yes Indication: cardioversion ASA Class: II Mallampati Airway Classification: Class II Preparation: traffic monitor specialist applied, pulse oximeter, capnometry used, supplemental O2 applied, suction/airway equipment at bedside and IV secured Fentanyl: IV Fentanyl dose (mcg): 12 IV Propofol dose (mg): 90 Intraservice time/total sedation time (min): 20 ED Sedation Level: Moderate (Concious) Patient Tolerated Procedure: No complications Complications: none Course Orders Ordered: ED Orders 11/04/22 20:40 Basic Metabolic Panel Stat Complete Blood Count AUTO DIFF Stat Magnesium Stat 11/04/22 20:43 EKG-12 Lead Stat 11/04/22 21:45 EKG-12 Lead Stat Discontinued Medications Fentanyl (Fentanyl 100 Mcg/2 Ml Inj) 12.5 mcg IV NOW ONE Stop: 11/04/22 20:59 Last Admin: 11/04/22 21:37 Dose: 12.5 mcg Documented By: MARIS Sodium Chloride (Normal Saline 0.9%) 1,000 mls @ 125 mls/hr IV CONT SYED Last Infusion: 11/04/22 22:30 Dose: 0 mls/hr Documented By: Admin: 11/04/22 21:30 Dose: 125 mls/hr Documented By: MARIS Propofol (Propofol 200 Mg/20 Ml Vial) 100 mg IV NOW ONE Stop: 11/04/22 20:59 Last Admin: 11/04/22 21:37 Dose: 90 mg Documented By: GC Vital Signs Vital signs: Vital Signs - 8 hr 11/04/22 20:35 11/04/22 21:28 11/04/22 21:50 Temperature 98.5 F 97.6 F 97.4 F L Pulse Rate 114 H 51 L 50 L Respiratory Rate 18 14 14 Blood Pressure 179/99 H 106/71 Pulse Oximetry 98 98 97 Oxygen Delivery Method Room Air Oxygen Flow Rate 2 0 11/04/22 21:50 11/04/22 21:53 11/04/22 20:57 Temperature 97.5 F L 97.4 F L Pulse Rate 52 L 53 L 107 H Respiratory Rate 16 16 15 Blood Pressure 137/60 126/65 Pulse Oximetry 97 96 98 Oxygen Delivery Method Oxygen Flow Rate 11/04/22 21:00 11/04/22 21:01 11/04/22 21:01 Temperature Pulse Rate 105 H 103 H Respiratory Rate 12 22 Blood Pressure 130/94 H Pulse Oximetry 96 97 Oxygen Delivery Method Oxygen Flow Rate 11/04/22 21:30 11/04/22 21:30 11/04/22 21:42 Temperature Pulse Rate 103 H 107 H Respiratory Rate 14 23 Blood Pressure 137/105 H Pulse Oximetry 97 95 Oxygen Delivery Method Oxygen Flow Rate 11/04/22 21:42 11/04/22 21:46 11/04/22 21:46 Temperature Pulse Rate 54 L Respiratory Rate 34 H Blood Pressure 111/63 106/71 Pulse Oximetry 95 Oxygen Delivery Method Oxygen Flow Rate 11/04/22 21:51 11/04/22 21:51 11/04/22 21:55 Temperature Pulse Rate 51 L 53 L Respiratory Rate 26 H 18 Blood Pressure 137/60 Pulse Oximetry 97 96 Oxygen Delivery Method Oxygen Flow Rate 11/04/22 21:55 11/04/22 22:11 11/04/22 22:00 Temperature Pulse Rate 103 H Respiratory Rate 20 Blood Pressure 126/65 123/69 Pulse Oximetry Oxygen Delivery Method Oxygen Flow Rate 11/04/22 22:00 11/04/22 22:14 11/04/22 22:15 Temperature Pulse Rate 53 L 54 L Respiratory Rate 25 H 22 Blood Pressure 131/66 Pulse Oximetry 95 97 Oxygen Delivery Method Oxygen Flow Rate 11/04/22 22:32 11/04/22 22:16 Temperature 97.6 F Pulse Rate 54 L 55 L Respiratory Rate 16 31 H Blood Pressure 126/64 Pulse Oximetry 97 96 Oxygen Delivery Method Room Air Oxygen Flow Rate MDM - Arrhythmia/Palpitations Medical Records Attestation: I reviewed the patient's medical records. Lab Data Attestation: I reviewed the patient's lab results. 11/04/22 20:40 11/04/22 20:40 Labs: Lab Results 11/04/22 11/04/22 Range/Units 20:40 20:40 WBC 9.7 (4.5-11.0) X10^3/uL RBC 4.51 (4.0-5.2) X10^6/uL Hgb 14.7 (12.0-16.0) g/dL Hct 43.7 (36-46) % MCV 96.8 (80-100) fL MCH 32.5 (26-34) PG MCHC 33.6 (30-36) % RDW 13.6 (11.6-14.8) % Plt Count 190 (150-400) X10^3/uL Neut % (Auto) 55.5 (50-75) % Lymph % (Auto) 28.7 (25-40) % [place] % (Auto) 8.6 (3-14) % Eos % (Auto) 6.3 H (2-4) % Baso % (Auto) 0.9 (0-2) % Neut # (Auto) 5400 (2349-4393) /uL Lymph # (Auto) 2800 (7092-6893) /uL [place] # (Auto) 800 (0-900) /uL Eos # (Auto) 600 H (0-450) /uL Baso # (Auto) 100 (0-100) /uL Sodium 137 (137-145) mmol/L Potassium 4.0 (3.4-5.1) mmol/L Chloride 104 (98-107) mmol/L Carbon Dioxide 23 (22-32) mmol/L BUN 16 (7-17) mg/dL Creatinine 0.71 (0.52-1.04) mg/dL Estimated GFR > 60 (>60) mL/min BUN/Creatinine Ratio 22.5 H (6-22) Glucose 129 H (80-110) mg/dL Calcium 8.9 (8.4-10.2) mg/dL Magnesium 2.1 (1.6-2.3) mg/dL Point of Care Testing Test Results Not applicable ECG Data Interpretation: Atrial fibrillation Ventricular rate 92 axis Normal QRS normal QTC No ST changes Post cardioversion Sinus bradycardia Ventricular rate of 54 First-degree AV block. T1-2 Normal axis Occasional PVC MDM Narrative Medical decision making narrative: After discussions of options and risks and benefits the patient opted for cardioversion. She was sedated and cardioverted without issue. Was sinus rhythm afterwards. States that her heart rate is normally in the 50s and 60s with occasional PVCs. Will discharge patient home without any changes to her medications. 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 She was given return precautions. She expressed understanding and agreement. Discharge Plan Departure Patient Disposition: Home Clinical Impression: Atrial fibrillation Instructions: DI for Cardioversion, DI for Atrial Fibrillation Activity Restrictions/Additional Instructions: Continue to take all of your medications as directed. We do not need to make any changes in his medicines despite having another episode of atrial fibrillation today. Contact your pipe and boiler covers supervisor for follow-up. Return to the emergency department for new symptoms. Prescriptions: No Action alprazolam 0.25 mg tablet 0.25 mg PO Q8H PRN (Reason: anxiety) Qty: 15 0RF albuterol sulfate 90 mcg/actuation HFA aerosol inhaler 2 puff inhalation Q4-6H PRN (Reason: shortness of breath or wheezing) Qty: 8.5 1RF acyclovir 400 mg tablet 400 mg PO DAILY PRN (Reason: cold sores) Qty: 90 3RF Rx Instructions: For maintenance progesterone micronized 200 mg capsule See Rx Instructions .ROUTE .COMPLEX Qty: 30 12RF Dose Instruction: Take 1 capsule by mouth at bedtime. Rx Instructions: Take 1 capsule by mouth at bedtime. fluticasone propionate [Flovent HFA] 110 mcg/actuation HFA aerosol inhaler 2 puff inhalation BID Qty: 12 1RF Rx Instructions: Rinse mouth and throat after use zolpidem [Ambien CR] 6.25 mg tablet,ext release multiphase 6.25 mg PO BEDTIME Qty: 30 0RF loratadine [Allergy Relief (loratadine)] 10 mg tablet 10 mg PO DAILY estradiol [Vivelle-Dot] 0.0375 mg/24 hr patch semiweekly 1 patch transdermal 2XW Qty: 8 12RF Patient Comments: pt to transition to in future Rx Instructions: apply 1 patch for 3 days alternating with 1 patch for 4 days each week fluticasone propionate [Flonase Allergy Relief] 50 mcg/actuation spray,suspension 2 spray intranasal DAILY Qty: 16 11RF Rx Instructions: administer into each nostril dragon balm THC 175 mg 1 unit topical DAILY PRN (Reason: Pain (Scale Score 1-3)) apixaban 5 mg tablet 5 mg PO BID zolpidem 5 mg tablet 5 mg PO BEDTIME PRN (Reason: insomnia) Qty: 30 0RF sotalol 80 mg Tablet 80 mg PO BID Referrals: Sienna Mcghee DO [Primary Care Provider] - Stand Alone Forms: Patient Portal/API
[2022-11-04 21:07] LABS: Add Manual Diff / Slide Review NO; Basophils Absolute Auto 100 /uL (0-100); Basophils Percent Auto 0.9 % (0-2); Eosinophils Absolute Auto 600 /uL (0-450); Eosinophils Percent Auto 6.3 % (2-4); Hematocrit 43.7 % (36-46); Hemoglobin 14.7 g/dL (12.0-16.0); Lymphocytes Absolute Auto 2800 /uL (1100-4500); Lymphocytes Percent Auto 28.7 % (25-40); Mean Corpuscular HGB Conc 33.6 % (30-36); Mean Corpuscular Hemoglobin 32.5 PG (26-34); Mean Corpuscular Volume 96.8 fL (80-100); Monocytes Absolute Auto 800 /uL (0-900); Monocytes Percent Auto 8.6 % (3-14); Neutrophils Absolute Auto 5400 /uL (1500-7000); Neutrophils Percent Auto 55.5 % (50-75); Platelet Count 190 X10^3/uL (150-400); Red Blood Cell Count 4.51 X10^6/uL (4.0-5.2); Red Cell Distribution Width 13.6 % (11.6-14.8); White Blood Cell Count 9.7 X10^3/uL (4.5-11.0)
[2022-11-04 21:12] LABS: BUN Creatinine Ratio 22.5 (6-22); Blood Urea Nitrogen 16 mg/dL (7-17); Calcium 8.9 mg/dL (8.4-10.2); Carbon Dioxide 23 mmol/L (22-32); Chloride 104 mmol/L (98-107); Estimated Glomerular Filt Rate > 60 mL/min (>60); Glucose 129 mg/dL (80-110); HEMOLYSIS 33 (0-50); Magnesium 2.1 mg/dL (1.6-2.3); Sodium 137 mmol/L (137-145)
[2022-11-04] MEDS: SODIUM CHLORIDE 0.9% 1,000 ML 125 ML IV (21:30)
[2022-11-04] MEDS: fentaNYL 100 MCG/2 ML INJ 12.5 MCG IV (21:37)
[2022-11-04] MEDS: propofoL 200 MG/20 ML VIAL 100 MG IV (21:37)
== END 2022-11-04 22:30 | disposition home or self-care (01) ==
PROVIDERS: Emergency Provider Emergency Medicine; PCP Family Medicine
DX: I48.91 Unspecified atrial fibrillation (principal); R00.1 Bradycardia, unspecified; Z79.01 Long term (current) use of anticoagulants
CPT/HCPCS: 36415; 80048; 83735; 85025; 92960; 93005; 96360; 99152; 99285; 99291; J2704; J3010

== ENCOUNTER → 2022-12-19 12:29 | Outpatient (CLI) | payer OTHER, SELFPAY | PROVIDERS: PCP Family Medicine; Referring Provider Family Medicine; Visit Provider Family Medicine | DX: I48.0 Paroxysmal atrial fibrillation (principal) | CPT/HCPCS: 93005 ==

== ENCOUNTER → 2023-01-26 15:22 | Outpatient (CLI) | payer OTHER, SELFPAY ==
--- NOTE | 2023-01-26 | DI.MG.S_ITS ---
BILATERAL DIGITAL SCREENING MAMMOGRAM 3D/2D WITH CAD: 01/26/2023 CLINICAL: Routine screening. Family history of breast cancer. Comparison is made to exams dated: 12/15/2021 mammogram, 05/22/2019 mammogram, and 05/18/2018 mammogram - [facility]. Both breasts are extremely dense, which lowers the sensitivity of mammography (category d />75% glandular tissue). Current study was also evaluated with a Computer Aided Detection (CAD) system. No significant masses, calcifications, or other findings are seen in either breast. There has been no significant interval change. IMPRESSION: NEGATIVE There is no mammographic evidence of malignancy. A 1 year screening mammogram is recommended. Based on Tyrer-Cuzick model (a risk assessment model), the patient's lifetime risk is 25.5% and her 10 year risk is 11.7%. If a patient has an elevated risk, a more comprehensive evaluation should be considered and/or a referral to a genetic counselor. The [place] [employer], [place] [employer], and NCCN Guidelines advise the consideration of Breast MRI as an adjunct to screening mammography in patients whose Lifetime risk to develop breast cancer is 20% or higher. This exam was interpreted at Station ID: [id number]. NOTE: For mammograms, a report in lay terms will be sent to the patient. Approximately 15% of breast malignancies will not be visualized mammographically. In the management of a palpable breast mass, a negative mammogram must not discourage biopsy of a clinically suspicious lesion. Electronically Signed By: Rakesh washburn/rahel:01/27/2023 09:42:47 letter sent: Normal Exam ACR BI-RADS Category 1: Negative 3341F
== END ==
PROVIDERS: PCP Family Medicine; Referring Provider Family Medicine; Visit Provider Family Medicine
DX: Z12.31 Encounter for screening mammogram for malignant neoplasm of breast (principal); Z80.3 Family history of malignant neoplasm of breast
CPT/HCPCS: 77063; 77067

== ENCOUNTER → 2023-06-30 12:53 | Outpatient (CLI) | payer OTHER, SELFPAY ==
[2023-06-30 13:24] LABS: Add Manual Diff / Slide Review NO; Basophils Absolute Auto 100 /uL (0-100); Eosinophils Absolute Auto 400 /uL (0-450); Eosinophils Percent Auto 6.3 % (2-4); Hematocrit 41.3 % (36-46); Hemoglobin 13.8 g/dL (12.0-16.0); Lymphocytes Absolute Auto 1900 /uL (1100-4500); Lymphocytes Percent Auto 27.4 % (25-40); Mean Corpuscular HGB Conc 33.4 % (30-36); Mean Corpuscular Hemoglobin 32.6 PG (26-34); Mean Corpuscular Volume 97.7 fL (80-100); Monocytes Absolute Auto 600 /uL (0-900); Monocytes Percent Auto 8.2 % (3-14); Neutrophils Absolute Auto 4000 /uL (1500-7000); Neutrophils Percent Auto 57.1 % (50-75); Platelet Count 184 X10^3/uL (150-400); Red Blood Cell Count 4.23 X10^6/uL (4.0-5.2); Red Cell Distribution Width 13.8 % (11.6-14.8)
[2023-06-30 13:44] LABS: Alanine Aminotransferase 19 IU/L (<35); Albumin 4.4 g/dL (3.5-5.0); Albumin Globulin Ratio 1.8 (1.0-2.8); Alkaline Phosphatase 70 U/L (38-126); Aspartate Aminotransferase 24 IU/L (14-36); BUN Creatinine Ratio 19.5 (6-22); Bilirubin Total 0.6 mg/dL (0.2-1.3); Blood Urea Nitrogen 15 mg/dL (7-17); Calcium 9.3 mg/dL (8.4-10.2); Carbon Dioxide 28 mmol/L (22-32); Chloride 107 mmol/L (98-107); Estimated Glomerular Filt Rate > 60 mL/min (>60); Globulin 2.5 g/dL (1.7-4.1); Glucose 83 mg/dL (80-110); HEMOLYSIS < 15 (0-50); Potassium 4.4 mmol/L (3.4-5.1); Sodium 139 mmol/L (137-145); Total Protein 6.9 g/dL (6.3-8.2)
[2023-06-30 14:13] LABS: TSH w/ Reflex to FT4 0.83 uIU/mL (0.47-4.68)
== END ==
PROVIDERS: PCP Family Medicine; Referring Provider Internal Medicine Cardiovascular Disease; Visit Provider Internal Medicine Cardiovascular Disease
DX: I48.0 Paroxysmal atrial fibrillation (principal)
CPT/HCPCS: 36415; 80053; 84443; 85025

== ENCOUNTER → 2023-09-20 10:22 | Outpatient (CLI) | payer OTHER, SELFPAY | PROVIDERS: PCP Family Medicine; Visit Provider Family Medicine | DX: N89.8 Other specified noninflammatory disorders of vagina (principal) | CPT/HCPCS: 87480; 87491; 87510; 87591; 87798; 87801 ==

== ENCOUNTER → 2024-01-11 12:39 | Outpatient (CLI) | payer BC, SELFPAY ==
--- NOTE | 2024-01-11 12:46 | DI.MRI.S_ITS ---
BREAST MRI OF BOTH BREASTS: 01/11/2024 CLINICAL: Dense Breasts. TECHNIQUE: The patient was placed prone in a dedicated breast imaging coil. Precontrast axial STIR and 3D FLASH without fat saturation sequences were obtained. Both before and after bolus injection of contrast, sequential 1-minute axial 3D FLASH with fat saturation sequences for 3 time points, with subtraction images and maximum intensity projections (MIP's) generated. Delayed sagittal FLASH images with fat saturation were also obtained. 20 cc ProHance gadolinium based IV contrast. Computer-aided detection, including computer algorithm analysis of MRI image data for lesion detection and characterization, pharmacokinetic analysis, with further physician review for interpretation, was performed. COMPARISON: [facility], , MM SCREENING MAMMO BI, 01/26/2023, 15:43. FINDINGS: Image quality: Excellent. There is mild right and moderate left, mainly peripheral background parenchymal enhancement. Right breast: No suspicious mass or non masslike enhancement. Left breast: No suspicious mass or non masslike enhancement. Miscellaneous: Median sternotomy changes are incidentally noted. No axillary or internal mammary chain adenopathy. The visible portions of the chest wall, liver, heart, and lungs appear normal. IMPRESSION: NEGATIVE No MR evidence of malignancy in either breast. No suspicious adenopathy. Continue annual screening mammography and screening breast MRI as clinically indicated. BIRADS one, negative COMMENT: The imaging literature indicates that a negative contrast breast MRI examination has a high sensitivity and a moderate specificity for detecting and excluding invasive carcinomas to a detection threshold of 3-5 mm; nonetheless, appropriate clinical and mammographic follow-up are recommended. MRI is not sensitive for detecting DCIS (ductal carcinoma in situ) and may not detect large invasive neoplasms that show only minimal enhancement such as mucinous carcinoma. If there are suspicious calcifications or clinically worrisome palpable masses, then biopsy should still be considered. Invasive neoplasms can be hidden by co-existent and benign enhancement caused by mastitis, hormone therapy effects, radiation therapy, , and recent biopsy or surgery. False positive examinations can occur in a number of circumstances, including breasts that have recently been subject to invasive procedures and those that contain atypical ductal hyperplasia, hormonally stimulated glandular tissue, fat necrosis, or radial scars. This exam was interpreted at Station ID: [id number]. Electronically Signed By: Tita conner/:01/12/2024 15:32:50 letter sent: Normal Exam ACR BI-RADS Category 1: Negative
== END ==
PROVIDERS: PCP Family Medicine; Referring Provider Family Medicine; Visit Provider Family Medicine
DX: R92.8 Other abnormal and inconclusive findings on diagnostic imaging of breast (principal); R92.30 Dense breasts, unspecified
CPT/HCPCS: 77049; A9579

== ENCOUNTER → 2024-06-26 12:07 | Outpatient (CLI) | payer BC, SELFPAY ==
--- NOTE | 2024-06-26 12:22 | EKG_ITS ---
[place] [address] [address] [place] [id number] Test Date: 2024-06-26 Pat Name: Ame Carey Department: [facility] Room: Gender: Female Location Manager: ROBSON : 1960 Requested By: Order Number: [id number] Reading MD: All Krueger MD Measurements Intervals [place] Rate: 56 P: 89 DE: 220 QRS: 5 QRSD: 92 T: 54 QT: 450 QTc: 434 Interpretive Statements Sinus bradycardia with 1st degree AV block with premature supraventricular complexes Incomplete right bundle branch block NO SIGNIFICANT CHANGE FROM PRIOR TRACING Electronically Signed On 06-26-2024 16:54:03 PDT by All Krueger MD
== END ==
PROVIDERS: PCP Family Medicine
DX: I48.0 Paroxysmal atrial fibrillation (principal)
CPT/HCPCS: 93005; 93010

== ENCOUNTER → 2024-09-06 | Outpatient (CLI) | payer BC, SELFPAY ==
--- NOTE | 2024-09-06 14:45 | DI.RAD.S_ITS ---
PROCEDURE: XR DEXA AXIAL W/VFA INDICATIONS: dexa screening COMPARISON: None. FINDINGS: Lumbar Spine: Bone mineral density 1.016 g/cm2, T score -0.3, normal. Left Femoral Neck: Bone mineral density 0.727 g/cm2, T score -1.1. Left Hip: Bone mineral density is 0.888 g/cm2, T score is -0.4, normal. Fracture Risk Calculation (when applicable): 10-year fracture risk of a major osteoporotic fracture 8.0 percent and of a hip fracture 0.6 percent. (T score greater or equal to -1.0 to: NORMAL) (T score from -1.1 to -2.4: OSTEOPENIA) (T score less than or equal to -2.5: OSTEOPOROSIS) IMPRESSION: Osteopenia Follow-up guidelines as follows: Osteoporosis: Consider a repeat DEXA and Vertebral Fracture Assessment (VFA) exam in 2 years or sooner if medically necessary, to reassess this patient's status. Osteopenia: Consider a repeat DEXA in 2-3 years to reassess this patient's status, or if there is a new clinical indication. Normal: Consider a repeat DEXA in 5 years or sooner, or if there is a new clinical indication. All treatment decisions require clinical judgment and consideration of individual patient factors, including patient preferences, comorbidities, previous drug use, risk factors not captured in the FRAX model (e.g., frailty, falls, vitamin D deficiency, increased bone turnover, interval significant decline in bone density ) and possible under- or over-estimation of fracture risk by FRAX. In addition, the NOF Guide recommends that FDA-approved medical therapies be considered in postmenopausal women and men age >= 50 years with a: * Hip or vertebral (clinical or morphometric) fracture * T-score of <=-2.5 at the spine or hip * Ten-year fracture probability by FRAX of >= 3% for hip fracture or >=20% for major osteoporotic fracture. Approved by: Master Wright M.D. on 09/07/2024 at 17:57
== END ==
LOC: RAD 14:45
PROVIDERS: PCP Family Medicine; Referring Provider Family Medicine; Visit Provider Family Medicine
DX: M85.852 Other specified disorders of bone density and structure, left thigh (principal); Z91.89 Other specified personal risk factors, not elsewhere classified
CPT/HCPCS: 77085

== ENCOUNTER → 2025-01-03 13:13 | Outpatient (CLI) | payer BC, SELFPAY ==
--- NOTE | 2025-01-03 13:14 | DI.MG.S_ITS ---
MM screening mammo BI: 01/03/2025. BI-RADS: 1 CLINICAL: 64-year old female for bilateral screening mammogram. Tyrer-Cuzick lifetime risk of 20.0%. No personal or first-degree family history of breast cancer. Current reported family history of breast cancer: paternal grandmother. PRIOR EXAMS 01/11/2024, 01/26/2023, 12/15/2021, 09/25/2020. MAMMOGRAPHY TECHNIQUE: 2D and 3D (tomosynthesis) digital mammographic views obtained, with additional images as needed for full coverage. Current study was also evaluated with a Computer Aided Detection (CAD) system. DENSITY D. The breasts are extremely dense, which lowers the sensitivity of mammography. MAMMOGRAPHY FINDINGS Bilateral: No suspicious mass, asymmetry, microcalcification, or other abnormality seen. IMPRESSION: * No evidence of malignancy. RECOMMENDATIONS Bilateral * According to the Tyrer-Cuzick Risk Assessment Model, based on the information provided your patient has a greater than 20% lifetime risk for developing breast cancer. Consider supplemental screening with breast MRI and participation in a high risk screening program. * Annual screening mammography. OVERALL ASSESSMENT CATEGORY BI-RADS-1: Negative. The [employer] recommends annual screening mammography beginning at age 40 for women with average risk of breast cancer. ELECTRONICALLY SIGNED: Tonja Álvarez M.D. on 01/03/2025 at 04:14:54 PM PT Interpreting Station ID: [id number]
== END ==
LOC: MAMMO 13:13
PROVIDERS: PCP Family Medicine; Referring Provider Family Medicine; Visit Provider Family Medicine
DX: Z12.31 Encounter for screening mammogram for malignant neoplasm of breast (principal); R92.30 Dense breasts, unspecified; Z80.3 Family history of malignant neoplasm of breast
CPT/HCPCS: 77063; 77067

== ENCOUNTER → 2025-02-13 15:13 | Outpatient (CLI) | payer BC, SELFPAY ==
--- NOTE | 2025-02-13 15:14 | DI.MRI.S_ITS ---
PROCEDURE: MR HEAD/BRAIN WO/W CON INDICATIONS: reproducible R vertex SWEENEY w valsalva or bending forward TECHNIQUE: Noncontrast axial T1 spin echo, axial T2 fast spin echo, sagittal and axial FLAIR, coronal T2 fast spin echo, axial gradient echo, axial diffusion and ADC through the brain. After the administration of contrast, axial and coronal and sagittal 3D VIBE or T1 spin echo with fat saturation through the brain. COMPARISON: None. FINDINGS: Image quality: Excellent. CSF Spaces: Basal cisterns are patent. No extra-axial fluid collections. Ventricles are normal in size and shape. Brain: No midline shift. No intracranial bleeds or masses. No abnormal intracranial enhancement. The brainstem appears normal. Diffusion-weighted images demonstrate no acute infarct. No chronic ischemic insults. Normal intravascular flow voids are present. Skull and face: Calvarial marrow is normal in signal. Orbits appear normal. Sinuses: Sinuses and mastoids appear clear. IMPRESSION: No acute intracranial abnormalities or abnormal intracranial enhancement. No cause for patient's symptoms is identified. Dictated by: Ehsan Tate M.D. on 02/13/2025 at 16:47 Approved by: Ehsan Tate M.D. on 02/13/2025 at 16:50
== END ==
LOC: MRI 15:13
PROVIDERS: PCP Family Medicine; Referring Provider Family Medicine; Visit Provider Family Medicine
DX: R51.9 Headache, unspecified (principal)
CPT/HCPCS: 70553; A9579